=== PATIENT | female | born 1955 | race Hispanic/Latino ===

== ENCOUNTER 2024-05-10 09:34 | Observation (INO) | payer OTHER ==
[2024-05-05 15:17] VITALS: BP 141/58; PULSE 95; RESP 18; TEMP 98.2
[2024-05-05 15:41] LABS: APPEARANCE,URINE CLEAR (CLEAR); BILIRUBIN,URINE NEGATIVE (NEGATIVE); COLOR,URINE YELLOW (YELLOW); GLUCOSE, URINE (UA) NEGATIVE (NEGATIVE); KETONES,URINE NEGATIVE (NEGATIVE); LEUKOCYTE ESTERASE ,URINE NEGATIVE Leu/uL (NEGATIVE); NITRATE,URINE NEGATIVE (NEGATIVE); OCCULT BLOOD,URINE SMALL (NEGATIVE); PH,URINE 5.5 (5.0-8.0); PROTEIN,URINE 10 mg/dL (NEGATIVE); UROBILINOGEN,URINE 0.2 mg/dL (0.2-1.0)
[2024-05-05 15:41] LABS: BASOPHILS # (AUTO) 0.06 K/uL (0.00-0.20); BASOPHILS % (AUTO) 0.9 % (0.0-5.0); EOSINOPHILS # (AUTO) 0.09 K/uL (0.00-0.70); EOSINOPHILS % (AUTO) 1.3 % (0.0-8.0); HEMATOCRIT 40.9 % (36-48); IMMATURE GRANULOCYTE ABSOLUTE 0.01 K/uL (0-1); LYMPHOCYTES # (AUTO) 2.9 K/uL (1.0-4.8); LYMPHOCYTES % (AUTO) 43.3 % (21.0-51.0); MEAN CORPUSCULAR HGB CONC 33.5 g/dL (32.0-36.0); MEAN CORPUSCULAR VOLUME 92.5 fL (79-99); MONOCYTES # (AUTO) 0.6 K/uL (0.1-1.0); MONOCYTES % (AUTO) 8.3 % (3.0-13.0); NEUTROPHILS # (AUTO) 3.1 K/uL (1.8-7.7); NEUTROPHILS % (AUTO) 46.1 % (40.0-77.0); PLATELET COUNT (AUTO) 283 K/uL (130-400); RED BLOOD CELL COUNT(AUTO) 4.42 MIL/uL (4.00-5.50); RED CELL DISTRIBUTION WIDTH 12.5 % (11.0-15.5); WHITE BLOOD COUNT (AUTO) 6.8 K/uL (4.8-10.8)
[2024-05-05 15:47] LABS: ADD UA MICROSCOPIC YES
[2024-05-05 15:50] LABS: BACTERIA,URINE RARE /HPF (None Seen); MUCUS,URINE FEW LPF (None Seen); SQUAMOUS EPITHELIAL CELL,UR RARE /HPF (0-2)
[2024-05-05 15:54] LABS: CREATININE 0.7 mg/dL (0.5-1.0); INR 1.02 (0.85-1.15); POTASSIUM 3.1 mmol/L (3.5-5.1); PROTHROMBIN TIME 11.4 SEC (9.6-11.6)
[2024-05-05 15:56] LABS: PARTIAL THROMBOPLASTIN TIME 30.1 SEC (26.3-35.5)
--- NOTE | 2024-05-09 09:43 | NUR ---
RE: LABS REPORTED BMP RESULTS TO DR NORWOOD, NO NEW ORDERS RECEIVED.
--- NOTE | 2024-05-09 09:48 | NUR ---
RE: LABS REPORTED UA AND URINE CX RESULTS TO DR ENG, NO ORDERS RECEIVED.
[2024-05-10] VITALS (24 sets, daily range): BP systolic 122–168; BP diastolic 50–74; PULSE 70–105; RESP 12–18; TEMP 97.2–98.3; O2SAT 99
[~2024-05-10] VITALS: Ht 152.4 cm; Wt 54.9 kg
[~2024-05-10 09:34] MED LIST: ASCO100031 PO; ATOR10 PO; BIMA2.5D4 OU; CALC-1125 PO; CHOL500045 PO; CYCL30DR OU; FISH12002 PO; LOSA50TA64 PO; METF-444 PO; VITAMIN B12 PO
[2024-05-10] MEDS: ceFAZolin SODIUM 2 GM VIAL ONE (10:44)
[2024-05-10] MEDS: 0.9%NACL 1000ML 1,000 ML IV ONE ×2 (10:44→17:04)
[2024-05-10] MEDS ORDERED: ondanSETRON 4MG INJ ONE (11:44)
[2024-05-10] MEDS ORDERED: LIDOCAINE PF 100MG/5ML (2%) SYRINGE 5ML ONE (11:44)
[2024-05-10] MEDS ORDERED: GLYCOPYRROLATE 0.2 MG/ML 5 ML VIAL ONE (11:45)
[2024-05-10] MEDS ORDERED: MIDAZOLAM HCL 1 MG/ML 2ML VIAL ONE (11:45)
[2024-05-10] MEDS ORDERED: phenylEPHRINE HCL 10 MG/ML 1ML VIAL IV ONE (11:45)
[2024-05-10] MEDS ORDERED: proPOFol 10 MG/ML 20ML VIAL IV ONE (11:45)
[2024-05-10] MEDS ORDERED: dexaMETHasone SOD PHOSPHATE 10MG/ML 1ML VIAL ONE (11:45)
[2024-05-10] MEDS ORDERED: NEOSTIGMINE METHYLSULFATE 1MG/ML IV ONE (11:45)
[2024-05-10] MEDS ORDERED: rocuRONium bROMide 10MG/1ML 5ML VL ONE (11:45)
[2024-05-10] MEDS ORDERED: ketOROlac 30MG VIAL (30MG/ML) ONE (11:46)
[2024-05-10] MEDS ORDERED: FENTanyl CITRate PF 50 MCG/1 ML 2ML VIAL ONE ×2 (11:46→13:42)
[2024-05-10] MEDS ORDERED: ceFAZolin SODIUM 1 GM VIAL ONE (12:26)
[2024-05-10] MEDS ORDERED: TRANEXAMIC ACID 1000MG/10ML ONE (12:26)
[2024-05-10] MEDS ORDERED: VANCOMYCIN 500MG+NS 100ML 100 ML IV ONE (12:27)
[2024-05-10] MEDS: ceFAZolin SODIUM 2 GM VIAL IVPB ONE (13:00)
[2024-05-10] MEDS ORDERED: traMADol HCL 50 MG TABLET PO PRN (15:00)
[2024-05-10] MEDS ORDERED: ketOROlac 15MG/ML VIAL (15MG/ML) IV PRN (15:00)
[2024-05-10] MEDS ORDERED: ondanSETRON 4MG INJ IVP PRN (15:00)
[2024-05-10] MEDS ORDERED: PoTASSium chloRIDE 20MEQ/100ML 100 ML IV PRN (15:00)
[2024-05-10] MEDS ORDERED: CALCIUM CARB 500MG PO PRN (15:00)
[2024-05-10] MEDS ORDERED: PoTASSium chloRIDE 20MEQ ER 20 MEQ ERTAB PO PRN (15:00)
[2024-05-10] MEDS ORDERED: PoTASSium chl 10% ELIXIR 20MEQ 20 MEQ/15 ML UDCUP PO PRN (15:00)
[2024-05-10] MEDS ORDERED: FERROUS FUMARATE 324 MG TABLET PO PRN (15:00)
[2024-05-10] MEDS ORDERED: DiphenhydrAMINE HCL 50 MG/ML VIAL IVP PRN (15:00)
[2024-05-10] MEDS ORDERED: acetaMINOPHEN 500 MG TABLET PO SCH (15:00)
--- NOTE | 2024-05-10 15:04 | OP ---
Operative Note: DATE OF PROCEDURE: 05/10/24 SURGEON: KARTHIK ENG MD BORING MACHINE OPERATOR DOUBLE END: [Kai Anthony CFA] ANESTHESIA: [General anesthesia plus regional block] ANESTHESIOLOGIST/SURGICAL SCRUB TECHNICIAN: [Herve Arevalo CRNA] PREOPERATIVE DIAGNOSIS: [Right knee osteoarthritis] POSTOPERATIVE DIAGNOSIS: [Right knee osteoarthritis] IMPLANTS: [Biomet vanguard femur size 57.5 right PS. Tibia size 63 fixed cruciate. Tibial liner size 12 by 63/67 PS. Patella size 28 by eight, asymmetric.] PROCEDURE: [Right total knee arthroplasty] ESTIMATED BLOOD LOSS: [100 mL] INDICATIONS: [68-year-old female with history of pain to the right knee secondary to osteoarthritis mostly involving the medial compartment. The patient has failed conservative treatment and is brought to the operating room for a right total knee arthroplasty. Procedure understood, risks, benefits and possible complications and agreed to sign the consent form] DESCRIPTION OF PROCEDURE: [After adequate general anesthesia was achieved and regional block obtained the right lower extremity was prepped and draped in the usual manner previous placement of the tourniquet in the proximal thigh. The extremity was then elevated and exsanguinated with an Esmarch bandage and the tourniquet inflated to 250 mmHg the Esmarch band been then removed. With the knee in flexion a longitudinal incision was then made in the anterior aspect through the skin followed by dissection of the subcutaneous tissue. A bone infusion needle was then inserted just medial to the tibial tuberosity in the proximal tibia and 50 mL of normal saline with 500 mg of vancomycin were then injected into the proximal tibia. The bone needle was then removed. A paramedian approach was then made with the Bovie cautery cutting through the quadriceps tendon, medial patellar retinaculum and patellar tendon retinaculum. The retropatellar tendon fat was then excised and the soft tissue elements of the tibia were elevated subperiosteally and retractors were applied medially and laterally . The anterior and posterior cruciate ligaments were resected. With the use of a drill a starting hole was made in the distal femur entering the intramedullary canal and then after removal of the drill an intramedullary guide was inserted with a 5 degree valgus block that touched the distal femur and to this the distal femoral cutting guide was then applied anteriorly and was secu red to the distal femur with the use of pins. The intramedullary guide was then removed and with the use of the oscillating saw we proceeded to resect the distal femur removing the fragments and the guide. The femoral sizer was then applied distally and drill holes were made removing the sizer and the 4-in-1 cutting block was then inserted and the anterior, posterior and chamfer cuts were made removing the fragments and the block. The posterior cruciate ligament retractor was then inserted posterior to the tibia and this was brought forward proceeding then to apply the external tibial alignment guide and secured the proximal cutting guide to the tibia with the use of pins. With the use of the oscillating saw the proximal cut to the tibia tibia was made. The bone fragment was removed and the trial tibia plate was chosen. At this point the menisci were removed sharply and with the use of the curved osteotome the posterior osteophytes of the femur were removed. The PS cutting guide was then inserted and the intercondylar cut was made removing the fragment and the guide. The trial components were then inserted at the femur and tibia with a trial tibial liner bringing the knee into extension noticing that the patient had a very stable knee in flexion, extension and with valgus and varus stress. The knee was maintained in extension and the patella was then addressed proceeding to mariposa sure its thickness and then with the use of the oscillating saw we removed eight mm from the articular surface and restored the height with application of a trial component after 3 peg holes were made. The patellofemoral ligament was removed and then the patellofemoral tracking was checked noticing to be normal. At this moment all the components were removed, the tibia after the metaphyseal defect was created and while cement was being mixed on the back table we proceeded to irrigate the joint with antibiotic solution and then cover the entry to the femoral canal with a bone plug. Once the cement was ready we proceeded to apply it first to the tibia surface inserting the final component and then to the femoral surface and inserted the final component removing the excess cement and then applying a trial liner bringing the knee into extension for compression. Then we proceeded to irrigate the patella surface and dried it applying then bone cement and the final patellar component was inserted and was secured with application of a clamp. The joint was irrigated with a warm diluted Betadine solution while the cement dried followed by irrigation with antibiotic solution. The trial liner was removed as well as the patellar clamp and we proceeded then to irrigate the posterior aspect of the joint to remove all the remaining debris . The tourniquet was then deflated and this was followed by hemostasis. After irrigation was completed then we proceeded to apply an irrigation with Experience. After completion of the irrigation we proceeded to remove all the loose fluid in the joint and then we proceeded to to apply the final tibial liner and locked it against the tibia . The range of motion was checked and noticed to be adequate with full extension and flexion, no laxity in valgus or varus stress and with adequate patellofemoral tracking. The patient had no anterior or posterior drawer. After further irrigation the wound was then closed with approximation of the quadriceps tendon, patellar retinaculum and patellar tendon retinaculum with #1 Vicryl close stitches alternating with #1 Ethibond stitches, and closure of the subcutaneous tissue with 2-0 Monocryl inverted stitches and the skin was closed with 3-0 Monocryl subcuticularly. The wound was covered with a suction dressing followed by application of an Beka bandage for compression and the drapes were then removed transferring the patient to the hospital bed and taken to recovery room for follow-up by anesthesia. There were no complications during the procedure.] KARTHIK ENG MD May 10, 2024 15:04
[2024-05-10] MEDS: acetaMINOPHEN 500 MG TABLET PO SCH (15:30)
[2024-05-10] MEDS: acetaMINOPHEN 100 ML ONE (15:45)
[2024-05-10] MEDS: hydroMORPHone 1 MG INJ ONE (16:00)
[2024-05-10] MEDS: 0.9%NACL 1000ML 1,000 ML IV SCH (16:16)
[2024-05-10] MEDS: INSULIN humuLIN R 100 UNIT/ML 3ML SQ SCH (16:30)
--- NOTE | 2024-05-10 16:30 | NUR ---
Patient admitted from The patient is received with report from the recovery room status post Total Right Knee Arthroplasty. IV fluids are infusing by PIV to the right hand. SCD's to the lower extremities. The patient is oriented to the room and the in the use of the call agrawal. The bed is left in the low position with the call agrawal in reach.
[2024-05-10] MEDS: HYDROcodone/APAP 5/325 1 TAB TABLET PO PRN (16:55)
[2024-05-10] MEDS: ASPIRIN 81 MG EC TAB PO SCH (20:01)
[2024-05-10] MEDS: ceFAZolin SODIUM 2 GM VIAL IVP SCH (20:01)
[2024-05-10] MEDS: doCUSate SODIUM 100 MG CAP PO SCH (20:01)
[2024-05-10] MEDS ORDERED: CeleCOXib 200 MG CAP PO SCH (21:00)
[2024-05-11] VITALS (9 sets, daily range): BP systolic 119–158; BP diastolic 53–71; PULSE 84–105; RESP 16–20; TEMP 97.9–98.4; O2SAT 92–96
[2024-05-11 06:30] LABS: HEMATOCRIT 34.6 % (36-48); MEAN CORPUSCULAR HEMOGLOBIN 31.4 pg (27.0-33.0); MEAN CORPUSCULAR HGB CONC 33.5 g/dL (32.0-36.0); MEAN CORPUSCULAR VOLUME 93.8 fL (79-99); RED BLOOD CELL COUNT(AUTO) 3.69 MIL/uL (4.00-5.50); RED CELL DISTRIBUTION WIDTH 12.7 % (11.0-15.5); WHITE BLOOD COUNT (AUTO) 13.5 K/uL (4.8-10.8)
[2024-05-11 06:54] LABS: CREATININE 0.7 mg/dL (0.5-1.0); POTASSIUM 3.6 mmol/L (3.5-5.1)
--- NOTE | 2024-05-11 08:06 | PN ---
Ortho postop day one. This morning patient is still in bed but resting comfortably she is awake alert oriented. Reporting little to no pain. is at the bedside. Vital signs have been stable. Afebrile. Laboratory results reviewed. Noted to have a drop in hemoglobin and hematocrit as expected after right total knee arthroplasty. Patient is currently asymptomatic and we will address per protocol as necessary. She is voiding on her own and passing gas but no BM yet. Beka bandage is removed and the PICCO dressing is intact and plasty green. Gastrocnemius soft nontender. Negative Homans. Range of motion not assessed on this encounter. Ambulated yesterday with physical therapy about 10 ft. Pending further physical therapy this morning. Operative findings discussed with the patient. Patient is anticipated to go home with a home health/PT. Eager to leave as soon as arrangements have been made. Stated that she has DME available to her including walker and bedside commode. Assessment: Status post right total knee arthroplasty. Asymptomatic acute postoperative blood loss anemia. Plan: Continue with Dr. Jesus TKA protocol and discharge planning Asymptomatic acute postoperative blood loss anemia addressed with protocol as necessary Vitals/Labs Vital Signs Date Time Temp Pulse Resp B/P (MAP) Pulse Ox O2 Delivery O2 Flow Rate FiO2 05/11/24 07:51 98.1 88 18 119/71 96 Room Air 05/10/24 20:00 0 21 Laboratory Tests 05/11/24 06:18 Medications Current Medications Cefazolin Sodium 2 gm STK-MED ONCE .ROUTE; Start 05/10/24 at 09:47; Stop 05/10/24 at 09:47; Status DC Sodium Chloride 1,000 ml @ As Directed STK-MED ONCE IV Last administered on 05/10/24at 10:44; Start 05/10/24 at 09:47; Stop 05/10/24 at 09:47; Status DC Lidocaine HCl 100 mg STK-MED ONCE .ROUTE; Start 05/10/24 at 11:44; Stop 05/10/24 at 11:45; Status DC Ondansetron HCl 4 mg STK-MED ONCE .ROUTE; Start 05/10/24 at 11:44; Stop 05/10/24 at 11:45; Status DC Dexamethasone Sodium Phosphate 10 mg STK-MED ONCE .ROUTE; Start 05/10/24 at 11:45; Stop 05/10/24 at 11:45; Status DC Glycopyrrolate 1 mg STK-MED ONCE .ROUTE; Start 05/10/24 at 11:45; Stop 05/10/24 at 11:45; Status DC Propofol 200 mg STK-MED ONCE IV; Start 05/10/24 at 11:45; Stop 05/10/24 at 11:45; Status DC Neostigmine Methylsulfate 10 mg STK-MED ONCE IV; Start 05/10/24 at 11:45; Stop 05/10/24 at 11:45; Status DC Phenylephrine HCl 10 mg STK-MED ONCE IV; Start 05/10/24 at 11:45; Stop 05/10/24 at 11:46; Status DC Midazolam HCl 2 mg STK-MED ONCE .ROUTE; Start 05/10/24 at 11:45; Stop 05/10/24 at 11:46; Status DC Rocuronium [place] 50 mg STK-MED ONCE .ROUTE; Start 05/10/24 at 11:45; Stop 05/10/24 at 11:46; Status DC Ketorolac Tromethamine 30 mg STK-MED ONCE .ROUTE; Start 05/10/24 at 11:46; Stop 05/10/24 at 11:46; Status DC Fentanyl Citrate 100 mcg STK-MED ONCE .ROUTE; Start 05/10/24 at 11:46; Stop 05/10/24 at 11:46; Status DC Tranexamic Acid 1,000 mg STK-MED ONCE .ROUTE; Start 05/10/24 at 12:26; Stop 05/10/24 at 12:27; Status DC Cefazolin Sodium 1 gm STK-MED ONCE .ROUTE; Start 05/10/24 at 12:26; Stop 05/10/24 at 12:27; Status DC Vancomycin HCl 100 ml @ As Directed STK-MED ONCE IV; Start 05/10/24 at 12:27; Stop 05/10/24 at 12:27; Status DC Fentanyl Citrate 100 mcg STK-MED ONCE .ROUTE; Start 05/10/24 at 13:42; Stop 05/10/24 at 13:42; Status DC Cefazolin Sodium 2 gm STK-MED ONCE IVPB Last administered on 05/10/24at 13:00; Start 05/10/24 at 13:00; Stop 05/10/24 at 13:51; Status DC Tranexamic Acid 1,000 mg STK-MED ONCE IV Last administered on 05/10/24at 13:25; Start 05/10/24 at 13:25; Stop 05/10/24 at 13:51; Status DC Cefazolin Sodium 3 gm STK-MED ONCE IRRIG Last administered on 05/10/24at 13:45; Start 05/10/24 at 13:45; Stop 05/10/24 at 13:51; Status DC Vancomycin HCl 500 mg STK-MED ONCE IJ Last administered on 05/10/24at 13:45; Start 05/10/24 at 13:45; Stop 05/10/24 at 13:51; Status DC Sodium Chloride 1,000 ml @ 100 mls/hr Q10H IV Last administered on 05/10/24at 16:16; Start 05/10/24 at 15:00; Stop 05/11/24 at 14:59 Polyethylene Glycol 17 gm DAILY PO; Start 05/11/24 at 09:00; Stop 06/10/24 at 08:59 Bisacodyl 10 mg DAILY PRN RC; Start 05/13/24 at 15:00; Stop 06/12/24 at 14:59 Ketorolac Tromethamine 15 mg Q6H PRN IV; Start 05/10/24 at 15:00; Stop 05/10/24 at 15:06; Status DC Famotidine 20 mg DAILY PO; Start 05/11/24 at 09:00; Stop 06/10/24 at 08:59 Ferrous Fumarate 324 mg DAILY PRN PO; Start 05/10/24 at 15:00; Stop 06/09/24 at 14:59 Ondansetron HCl 4 mg Q6H PRN IVP; Start 05/10/24 at 15:00; Stop 06/09/24 at 14:59 Calcium Carbonate 500 mg Q12H PRN PO; Start 05/10/24 at 15:00; Stop 06/09/24 at 14:59 Diphenhydramine HCl 25 mg Q6H PRN IVP; Start 05/10/24 at 15:00; Stop 06/09/24 at 14:59 Insulin Human Regular INSULIN SLIDING SCAL... ACHS SQ Last administered on 05/10/24at 20:07; Start 05/10/24 at 16:30; Stop 06/09/24 at 16:29 Cefazolin Sodium 2 gm Q8H IVP Last administered on 05/11/24at 04:07; Start 05/10/24 at 20:00; Stop 05/11/24 at 04:01; Status DC Docusate Sodium 100 mg BID PO Last administered on 05/10/24at 20:01; Start 05/10/24 at 21:00; Stop 06/09/24 at 20:59 Potassium Chloride 100 ml @ 100 mls/hr AD PRN IV; Start 05/10/24 at 15:00; Stop 06/09/24 at 14:59 Potassium Chloride 20 meq AD PRN PO; Start 05/10/24 at 15:00; Stop 06/09/24 at 14:59 Potassium Chloride 20 meq AD PRN PO; Start 05/10/24 at 15:00; Stop 06/09/24 at 14:59 Celecoxib 200 mg BID PO; Start 05/10/24 at 21:00; Stop 05/10/24 at 15:10; Status DC Tramadol HCl 50 mg Q6H PRN PO; Start 05/10/24 at 15:00; Stop 05/10/24 at 15:04; Status DC Acetaminophen 1,000 mg Q8H PO; Start 05/10/24 at 15:00; Stop 05/10/24 at 15:05; Status DC Aspirin 81 mg BID PO Last administered on 05/10/24at 20:01; Start 05/10/24 at 21:00; Stop 06/09/24 at 20:59 Acetaminophen/ Hydrocodone Bitart 1 tab Q4H PRN PO Last administered on 05/11/24at 04:10; Start 05/10/24 at 15:00; Stop 05/15/24 at 14:59 Acetaminophen 1,000 mg Q8H PO Last administered on 05/11/24at 06:20; Start 05/10/24 at 15:30; Stop 06/09/24 at 15:29 Acetaminophen 100 ml @ As Directed STK-MED ONCE .ROUTE Last administered on 05/10/24at 15:45; Start 05/10/24 at 15:44; Stop 05/10/24 at 15:44; Status DC Hydromorphone HCl 1 mg STK-MED ONCE .ROUTE Last administered on 05/10/24at 16:00; Start 05/10/24 at 15:48; Stop 05/10/24 at 15:48; Status DC Sodium Chloride 1,000 ml @ As Directed STK-MED ONCE IV Last administered on 05/10/24at 17:04; Start 05/10/24 at 16:16; Stop 05/10/24 at 16:16; Status DC TERESE SALMERON NP May 11, 2024 08:06
[2024-05-11] MEDS: FAMOTIDINE 20MG TAB PO SCH (08:08)
[2024-05-11] MEDS: polyETHYLene GLYCol 3350 17 GM POWD.PACK PO SCH (08:08)
--- NOTE | 2024-05-11 11:29 | NUR ---
[facility] CM MET WITH PT AND SPOUSE THIS MORNING, ASSESSMENT DONE. PATIENT IS INDEPENDENT PRIOR TO SURGERY, LIVES AT HOME WITH HER . PATIENT HAS A WALKER AND BPM. DENIES ANY OTHER EQUIPMENT/SERVICES. FEELS SAFE TO GO BACK HOME, SPOUSE ABLE TO ASSIST WITH TRANSPORTATION AND NEEDS NECESSARY. DISCUSSED MD RECOMMENDATIONS FOR HOME W/HH, GIVEN IN NETWORK HH, PT AGREEABLE, CONSENT SIGNED LISA FOR [facility]. [facility] HOME W/HH ONCE APPROVED. SENT ORDER, CLINICALS, PT TO [facility] VIA SECURE FAX AND EMAIL, CONFIRMATION RECEIVED. PENDING RESP RESPONSE. PT PENDING APPROVAL. PRIMARY NURSE KARTHIK/SANDY SERRANO. DR ENG UPDATED. CM TO CONTINUE TO FOLLOW UP. Addendum: 05/11/24 at 1132 by ESME SUNG LVN Amended: Links added.
--- NOTE | 2024-05-11 13:00 | NUR ---
ORTHO COORDINATOR: TEACHING REGARDING DVT AND PNEUMONIA PREVENTION, PAIN EXPECTATIONS AND PAIN MANAGEMENT. PATIENT UP TO CHAIR. INCENTIVE SPIROMETER ON BEDSIDE TABLE. PATIENT REPORTS PERFORMING EVERY HOUR. REQUESTED SHE PERFORM 10 TIMES IN ONE HOUR. PATIENT VERBALIZED UNDERSTANDING. PATIENT RETURN DEMONSTRATED PROPER FOOT FLEXION/EXTENSION EXERCISE. PAIN EXPECTATIONS REVIEWED. REVIEWED NUMERIC PAIN SCORE. ASKED PATIENT TO PROVIDE NUMERIC SCORE ANY TYPE OF PAIN. PATIENT VERBALIZED UNDERSTANDING. PAIN CURRENTLY CONTROLLED. ENCOURAGED PATIENT TO CONTINUE PRE-MEDICATING PRIOR TO PHYSICAL THERAPY VISITS AT HOME AND DURING PERIODS OF HIGH ACTIVITY. PATIENT VERBALIZED UNDERSTANDING. PATIENT INSTRUCTED TO TAKE INCENTIVE SPIROMETER HOME AND CONTINUE UTILIZING. LEWSI INSTRUCTION SHEET PROVIDED AND REVIEWED. QUESTIONS ANSWERED. PATIENT INSTRUCTED TO TAKE SPARE DRESSING HOME, IF ISSUES ARISE, HOME HEALTH NURSE SHOULD REPLACE DRESSING. PATIENT VERBALIZED UNDERSTANDING. NO ADDITIONAL QUESTIONS OR CONCERNS AT THIS TIME. NO DME NEEDED PER PATIENT. Addendum: 05/11/24 at 1543 by REINALDO BANKS RN RN B SCD SLEEVES AVAILABLE, MACHINE AT END OF BED.
[2024-05-11] MEDS: ketOROlac 15MG/ML VIAL (15MG/ML) IV PRN (14:34)
--- NOTE | 2024-05-11 14:45 | NUR ---
CM NOTE: [facility] APPROVAL CM SPOKE TO ALEX W/[facility], PT HAS APPROVAL, WILL SEE PATIENT TOMORROW IF DC TODAY, OTHERWISE WILL SEE PT DAY AFTER D/C. PRIMARY NURSE SANDY MADE AWARE. DR ENG UPDATED. CM TO CONTINUE TO FOLLOW UP. Addendum: 05/11/24 at 1446 by ESME SUNG LVN CM Amended: Links added.
--- NOTE | 2024-05-11 16:12 | NUR ---
This specification writer notified Yokasta LONG of the approval for home health. No new orders, pt will be discharged tomorrow.
--- NOTE | 2024-05-11 18:03 | NUR ---
Prune juice Patient has not had a BM. Warm prune juice was offered and she agreed to take it. this customs entry writer infomred her of the plan to offer her a suppository if she does not have a bowel movement. She agreed to try the prune juice first.
--- NOTE | 2024-05-11 19:19 | DS ---
DISCHARGE SUMMARY [[Date of admission:05/10/23 Date of discharge: 05/12/23 Final diagnosis: Left Knee osteoarthritis Surgical procedures:Left total Knee arthroplasty on Summary of History and Physical: The patient is a 68 year-old female with history of severe arthrosis to the left knee that has been present for several years and has been treated conservatively with no longer adequate response to treatment. The patient is being admitted for total knee arthroplasty. Past Medical History: Diabetes mellitus.Hypertension.Hyperlipidemia. Surgical History: appendectomyhysterectomy Family History: Mother: diagnosed with Unspecified essential hypertension. Paternal Grand Father: diagnosed with Diabetes mellitus without mention of complication, type II or unspecified type, not stated as uncontrolled AllergiesLatex Review of system: Negative on admission Hospital course: The patient was admitted and taken to the operating room for a total knee arthroplasty, procedure that went uneventful. Postoperatively the patient remained hemodynamically stable and afebrile. The patient received antibiotic and anticoagulation prophylaxis as per protocol. The patient was evaluated by physical therapy and started rehabilitation treatment with ambulati on with the use of walker, weightbearing as tolerated, range of motion exercises and bed transfers. The patient was also evaluated by case management and arrangements were made for discharge. The patient tolerated diet well. On postop day #2 all the arrangements were completed. The dressing was changed and the wound was noted to be stable and the patient was dismissed. Condition on discharge: Good Disposition: The patient will be dismissed home with . Follow-up will be done at the office in 3 weeks. The patient is to continue with physical therapy and rehabilitation at home and be ambulatory with the use of a walker, weig htbearing as tolerated. Continue taking pain medication as instructed as well as anticoagulation prophylaxis. Continue with home medications also as instructed and continue with pre admission diet.] KARTHIK ENG MD ] KARTHIK ENG MD May 11, 2024 19:19
[2024-05-11] MEDS ORDERED: CeleCOXib 200 MG CAP PO SCH (21:00)
[2024-05-11] MEDS: CeleCOXib 200 MG CAP PO SCH (21:03)
[2024-05-11] MEDS: traMADol HCL 50 MG TABLET PO PRN (22:10)
[2024-05-12 03:26] VITALS: BP 138/75; PULSE 80; RESP 16; TEMP 97.8
--- NOTE | 2024-05-12 06:50 | NUR ---
SUPPOSITORY PT WITH NO BOWEL MOVEMENT OFFERED SUPPOSITORY SHE SAYS WAIT UNTIL AFTER BREAKFAST.
[2024-05-12 08:00] VITALS: BP 143/59; PULSE 79; RESP 18; TEMP 97.6
[2024-05-12] MEDS: MAGNESIUM CITRATE 296 ML SOLUTION PO ONE (09:23)
[2024-05-12] MEDS: HYDROcodone/APAP 5/325 1 TAB TABLET PO PRN (09:26)
[2024-05-12 12:00] VITALS: BP 129/58; PULSE 95; RESP 18; TEMP 97.7
[2024-05-12 16:00] VITALS: BP 152/56; PULSE 80; RESP 18; TEMP 97.9
[2024-05-12] MEDS ORDERED: AEC81 PO (16:12)
[2024-05-12] MEDS ORDERED: HYDR-4060 PO (16:12)
[2024-05-12 18:08] VITALS: O2SAT 94
--- NOTE | 2024-05-12 18:10 | NUR ---
note discharge instructions given to patient she stated understanding. all questions answered. report called to telephone order clerk room service nurse with [facility]. they will follow up with patient tomorrow.
[2024-05-13] MEDS ORDERED: BisaCODYL 10 MG SUPP.RECT RC PRN (15:00)
== END 2024-05-12 18:25 | disposition home or self-care (01) ==
LOC: DAH 09:34 → DAHIP 09:35 → DAH 09:35 → 3DH 16:30
PROVIDERS: ADMIT Orthopaedic Surgery; ATTEND Orthopaedic Surgery
DX: M17.11 Unilateral primary osteoarthritis, right knee (principal); M25.561 Pain in right knee; I10 Essential (primary) hypertension; E78.5 Hyperlipidemia, unspecified; E11.9 Type 2 diabetes mellitus without complications; D62 Acute posthemorrhagic anemia; Z96.652 Presence of left artificial knee joint; Z79.899 Other long term (current) drug therapy; Z98.890 Other specified postprocedural states
CPT/HCPCS: 80048 ×2; 85025; 85610; 85730; 87086; 81001; 36415 ×2; 87641; 27447; 64447; 96372; 96365; 82948 ×9; 88311; 88305; 97161; 97116 ×5; 97530 ×7; 96366; 96375; 85027; G0378 ×47; A4663; J7030 ×3; J3010 ×2; J0690 ×6; J1171; J3490 ×4; J1100; J2003; J2250; J2704; J2405; J1885 ×2; J2710; J2371; J3370 ×2; J1815; A9272; A4649 ×4; A4930 ×2; C1713; C1776; A4215; A4223 ×2; A4213; A4222; A4221; A4216

== ENCOUNTER → 2024-12-07 | Outpatient (CLI) | payer OTHER ==
[~2024-12-07] MED LIST changes: +AEC81 PO; -ASCO100031 PO; +ASCO10004 PO; +HYDR-4060 PO
[2024-12-07 09:54] LABS: IMMATURE GRANULOCYTE ABSOLUTE 0.01 K/uL (0-1); NUCLEATED RED BLOOD CELLS 0.0 % (0.0-0.19); PLATELET COUNT (AUTO) 340 K/uL (130-400); RED BLOOD CELL COUNT(AUTO) 4.46 MIL/uL (4.00-5.50); RED CELL DISTRIBUTION WIDTH 12.3 % (11.0-15.5); WHITE BLOOD COUNT (AUTO) 5.8 K/uL (4.8-10.8)
[2024-12-07 10:11] LABS: ERYTHROCYTE SEDIMENTATION RATE 4 MM/HR (0-30)
== END | disposition home or self-care (01) ==
LOC: RAH 09:08
PROVIDERS: ATTEND Orthopaedic Surgery
DX: M25.461 Effusion, right knee (principal)
CPT/HCPCS: 36415; 85025; 85651; 86140

== ENCOUNTER → 2024-12-14 | Outpatient (CLI) | payer OTHER ==
[2024-12-14 11:41] LABS: BODY FLUID RBC 23780 /cu. mm.; BODY FLUID WBC 89 /cu. mm.
[2024-12-14 11:51] LABS: APPEARANCE BODY FLUID CLOUDY (CLEAR); COLOR,BODY FLUID RED (LT YELLOW); SPECIMENTYPE,BODY FLUID SYNOVIAL
[2024-12-14 11:52] LABS: TOTAL VOLUME,BODY FLUID 2 mL
[2024-12-14 12:58] LABS: BF BASOPHIL 1 %; BF EOSINOPHIL 4 %; BF LYMPHOCYTE 56 %; BF MACROPHAGE 2; BF MESOTHELIAL 4 %; BF MONOCYTE 6 %; BF NEUTROPHIL 27.0 %; BF TOTAL CELLS COUNTED 100
== END | disposition home or self-care (01) ==
LOC: LAB 09:28
PROVIDERS: ATTEND Orthopaedic Surgery
DX: M25.461 Effusion, right knee (principal)
CPT/HCPCS: 87071; 87076; 87205; 89051